=== PATIENT | male | born 1965 | race African-American/Black ===

== ENCOUNTER 2017-01-30 14:47 | Emergency (ER) | payer BC ==
[~2017-01-30] VITALS: Ht 185.4 cm; Wt 116.1 kg
[~2017-01-30 14:47] MED LIST: APRESOLINE 25MG25 MG PO; APRESOLINE50 MG PO; ASPIRIN 81M81 MG/TA2 PO; BACTRIM DS 8001 TAB PO; DOXYCYCLINE 10100 MG PO; FLONASEALLERGY NS; HCTZ 25MG TAB25 MG PO; LEVAQUIN 5500 MG/TA1 PO; MULTIPLE VITAMI1 CAP PO; NORCO 325 MG-51 TAB PO; NORVASC 10MG10 MG PO; PREDNISONE20 MG PO; PRINZIDE 25 MG-1 TAB PO; TRIAMCINOLONE A15 G1 TP; TUSS PO; ZESTRIL40 MG PO
[2017-01-30 14:49] VITALS: BP 127/90; PULSE 65; TEMP 97.4
[2017-01-30] MEDS ORDERED: CEPHALEXIN500 M1 PO (15:20)
== END 2017-01-30 15:32 | disposition home or self-care (01) ==
LOC: COL.ER 14:47
DX: J02.9 Acute pharyngitis, unspecified (principal)

== ENCOUNTER 2017-04-15 14:32 | Day surgery (SDC) | payer BC ==
[~2017-04-15] VITALS: Ht 185.4 cm; Wt 113.9 kg
[~2017-04-15 14:32] MED LIST changes: +CEPHALEXIN500 M1 PO
[2017-04-15 15:18] VITALS: BP 134/89; PULSE 56; TEMP 97.1
[2017-04-15] MEDS ORDERED: FLONASEALLERGY NS (15:27)
[2017-04-15] MEDS ORDERED: SINGULAIR 110 MG/TAB PO (15:27)
[2017-04-15 16:43] VITALS: BP 117/84; PULSE 56; TEMP 97
[2017-04-15 16:58] VITALS: BP 125/86; PULSE 56
[2017-04-15 17:13] VITALS: BP 118/80; PULSE 60
== END 2017-04-15 17:30 | disposition home or self-care (01) ==
LOC: SDCO 14:32
DX: Z12.11 Encounter for screening for malignant neoplasm of colon (principal); K64.8 Other hemorrhoids; I10 Essential (primary) hypertension; Z79.82 Long term (current) use of aspirin; Z79.899 Other long term (current) drug therapy
CPT/HCPCS: OP; J2250; J3010; J7030

== ENCOUNTER 2017-09-02 04:20 | Emergency (ER) | payer BC ==
[~2017-09-02] VITALS: Ht 185.4 cm; Wt 109.1 kg
[~2017-09-02 04:20] MED LIST changes: +SINGULAIR 110 MG/TAB PO
[2017-09-02 04:23] VITALS: BP 133/70; TEMP 99.8
[2017-09-02 05:21] LABS: INFLUENZA B NEGATIVE
[2017-09-02] MEDS ORDERED: VOLTAREN 75 DR75 MG PO (05:28)
[2017-09-02] MEDS ORDERED: BENADRYL25 M2 PO (05:28)
[2017-09-02] MEDS ORDERED: SUDAFED30 MG PO (05:28)
[2017-09-02 05:36] VITALS: PULSE 85
== END 2017-09-02 05:37 | disposition home or self-care (01) ==
LOC: COL.ER 04:20
PROVIDERS: Emergency Medicine
DX: B34.9 Viral infection, unspecified (principal); I10 Essential (primary) hypertension; J45.909 Unspecified asthma, uncomplicated; Z79.82 Long term (current) use of aspirin
CPT/HCPCS: J1885

== ENCOUNTER 2017-10-21 18:24 | Emergency (ER) | payer BC ==
[~2017-10-21] VITALS: Ht 182.9 cm; Wt 110.0 kg
[~2017-10-21 18:24] MED LIST changes: +BENADRYL25 M2 PO; +FLEXERIL 1010 MG/TAB PO; +SUDAFED30 MG PO; +VOLTAREN 75 DR75 MG PO
[2017-10-21 18:26] VITALS: BP 124/75; TEMP 98.2
[2017-10-21] MEDS ORDERED: ZITHROMAX Z PA250 MG PO (19:06)
[2017-10-21] MEDS ORDERED: PROAIR HFA0.09 MG/AC IH (19:06)
[2017-10-21 19:21] VITALS: PULSE 89
== END 2017-10-21 19:22 | disposition home or self-care (01) ==
LOC: COL.ER 18:24
DX: J40 Bronchitis, not specified as acute or chronic (principal); R06.2 Wheezing; I10 Essential (primary) hypertension; Z79.82 Long term (current) use of aspirin

== ENCOUNTER 2018-02-23 05:08 | Emergency (ER) | payer BC ==
[~2018-02-23] VITALS: Ht 185.4 cm; Wt 113.6 kg
[~2018-02-23 05:08] MED LIST changes: +PROAIR HFA0.09 MG/AC IH; +ZITHROMAX Z PA250 MG PO
[2018-02-23 05:11] VITALS: TEMP 98.5
[2018-02-23] MEDS ORDERED: FLONASEALLERGY NS (05:48)
[2018-02-23] MEDS ORDERED: DOXYCYCLINE HY100 MG PO (05:48)
[2018-02-23 06:20] VITALS: BP 125/72; PULSE 75
== END 2018-02-23 06:25 | disposition home or self-care (01) ==
LOC: COL.ER 05:08
DX: J01.90 Acute sinusitis, unspecified (principal); J30.2 Other seasonal allergic rhinitis; K02.9 Dental caries, unspecified; I10 Essential (primary) hypertension; Z98.890 Other specified postprocedural states; Z79.82 Long term (current) use of aspirin

== ENCOUNTER 2018-03-10 06:26 | Emergency (ER) | payer BC ==
[~2018-03-10] VITALS: Ht 185.4 cm; Wt 114.5 kg
[~2018-03-10 06:26] MED LIST changes: +DOXYCYCLINE HY100 MG PO
[2018-03-10 06:35] VITALS: TEMP 97.5
[2018-03-10 06:56] LABS: BASO % 0.3 % (0.0-2.0); EOS # 0.3 (0.0-0.7); GRAN # 2.8 (1.4-6.5); HEMOGLOBIN 12.8 g/dl (13.5-18.0); LYMPH # 2.2 (1.2-3.4); LYMPH % 35.1 % (20.0-51.0); MEAN CELL VOLUME 77 fl (80.0-100.0); MEAN CORPUSCULAR HEMOGLOBIN 27 pg (27.0-31.0); MEAN CORPUSCULAR HGB CONC 36 g/dl (33.0-37.0); MEAN PLATELET VOLUME 9.3 fl (7.4-10.4); MONO # 0.9 (0.1-0.6); MONO % 14.4 % (1.7-9.3); PLATELET COUNT 209 K/mm3 (130-400); RED BLOOD COUNT 4.67 M/mm3 (4.20-5.60); REDCELL DISTRIBUTION WIDTH-CV 15.2 % (11.5-14.5)
[2018-03-10 07:04] LABS: HEMATOCRIT 36.1 % (42.0-52.0)
[2018-03-10 07:07] LABS: ALANINE AMINOTRANSFERASE 42 U/L (21-72); ALBUMIN 3.8 gm/dL (3.5-5.0); ALKALINE PHOSPHATASE 94 U/L (50-136); ANION GAP 11 mmol/L (7-16); AST,SGOT 38 U/L (15-37); BILIRUBIN,TOTAL 0.5 mg/dL (0.0-1.0); BLOOD UREA NITROGEN 19 mg/dL (9-20); CARBON DIOXIDE 26 mmol/L (22-30); CHLORIDE 105 mmol/L (98-107); CREATININE, serum 1.02 mg/dL (0.66-1.25); GLUCOSE 99 mg/dL (74-106); LIPASE 114 U/L (23-300); POTASSIUM 3.3 mmol/L (3.4-5.0); SODIUM 142 mmol/L (137-145); TOTAL PROTEIN 7.8 gm/dL (6.4-8.2)
[2018-03-10 07:17] LABS: ALCOHOL(ethanol),MEDICAL < 10 mg/dL
[2018-03-10 07:19] LABS: TROPONIN-I < 0.012 ng/mL (0.000-0.034)
[2018-03-10] MEDS ORDERED: K-DUR 10 MEQ T10 MEQ PO (10:11)
[2018-03-10 10:36] VITALS: BP 103/64; PULSE 65
== END 2018-03-10 10:41 | disposition home or self-care (01) ==
LOC: COL.ER 06:26
PROVIDERS: Emergency Medicine
DX: R00.2 Palpitations (principal); R07.89 Other chest pain; E87.6 Hypokalemia; I10 Essential (primary) hypertension; Z79.82 Long term (current) use of aspirin
CPT/HCPCS: J7030; Q9967

== ENCOUNTER 2018-08-27 07:56 | Emergency (ER) | payer BC ==
[~2018-08-27] VITALS: Ht 182.9 cm; Wt 109.1 kg
[~2018-08-27 07:56] MED LIST changes: +K-DUR 10 MEQ T10 MEQ PO
[2018-08-27] MEDS ORDERED: MEDROL 4MG DOSPA4 MG PO (08:20)
[2018-08-27 08:36] VITALS: BP 128/76; PULSE 65; TEMP 97.9
== END 2018-08-27 08:36 | disposition home or self-care (01) ==
LOC: COL.ER 07:56
DX: J32.9 Chronic sinusitis, unspecified (principal); I10 Essential (primary) hypertension; Z79.51 Long term (current) use of inhaled steroids; Z88.0 Allergy status to penicillin; Z77.22 Contact with and (suspected) exposure to environmental tobacco smoke (acute) (chronic)

== ENCOUNTER 2018-08-30 00:03 | Emergency (ER) | payer SELFPAY ==
[~2018-08-30] VITALS: Ht 182.9 cm; Wt 110.0 kg
[~2018-08-30 00:03] MED LIST changes: +MEDROL 4MG DOSPA4 MG PO
[2018-08-30 00:08] VITALS: BP 128/74; TEMP 97.8
[2018-08-30 01:40] VITALS: PULSE 53
== END 2018-08-30 01:40 | disposition home or self-care (01) ==
LOC: COL.ER 00:03
DX: L29.9 Pruritus, unspecified (principal); I10 Essential (primary) hypertension; Z88.0 Allergy status to penicillin

== ENCOUNTER 2019-02-24 20:48 | Emergency (ER) | payer SELFPAY ==
[~2019-02-24] VITALS: Ht 182.9 cm; Wt 115.9 kg
[2019-02-24 20:58] VITALS: TEMP 98.1
[2019-02-24] MEDS ORDERED: PREDNISONE10 MG PO (22:42)
[2019-02-24 23:01] VITALS: BP 142/93; PULSE 68
== END 2019-02-24 23:01 | disposition home or self-care (01) ==
LOC: COL.ER 20:48
DX: J06.9 Acute upper respiratory infection, unspecified (principal); Z79.82 Long term (current) use of aspirin
CPT/HCPCS: J7512

== ENCOUNTER → 2019-08-18 | Outpatient (CLI) | payer OTHER ==
[~2019-08-18] MED LIST changes: +PREDNISONE10 MG PO
[2019-08-18 09:51] LABS: BASO % 0.5 % (0.0-2.0); EOS # 0.3 (0.0-0.7); EOS % 5.7 % (0-4.0); GRAN # 2.8 (1.4-6.5); GRAN % 46.8 % (42.2-75.2); HEMOGLOBIN 12.7 g/dl (13.5-18.0); LYMPH # 1.9 (1.2-3.4); LYMPH % 32.1 % (20.0-51.0); MEAN CELL VOLUME 77 fl (80.0-100.0); MEAN CORPUSCULAR HEMOGLOBIN 27 pg (27.0-31.0); MEAN CORPUSCULAR HGB CONC 35 g/dl (33.0-37.0); MEAN PLATELET VOLUME 10.1 fl (7.4-10.4); MONO # 0.9 (0.1-0.6); MONO % 14.4 % (1.7-9.3); PLATELET COUNT 223 K/mm3 (130-400); RED BLOOD COUNT 4.69 M/mm3 (4.20-5.60); REDCELL DISTRIBUTION WIDTH-CV 15.1 % (11.5-14.5)
[2019-08-18 10:02] LABS: ALBUMIN 4.4 gm/dL (3.5-5.0); BILIRUBIN,TOTAL 0.7 mg/dL (0.0-1.0); CALCIUM 9.4 mg/dL (8.4-10.2); CHOLESTEROL RISK RATIO 3.8; CREATININE, serum 0.95 (0.66-1.25); HEMATOCRIT 36.2 % (42.0-52.0); POTASSIUM 3.5 mmol/L (3.4-5.0); TOTAL PROTEIN 8.2 gm/dL (6.4-8.2)
[2019-08-18 10:44] LABS: PSA-TOTAL 0.98 ng/mL (0-4)
== END ==
LOC: COL.LAB 09:08
PROVIDERS: Family Medicine
DX: Z12.5 Encounter for screening for malignant neoplasm of prostate (principal); I10 Essential (primary) hypertension; E03.9 Hypothyroidism, unspecified
CPT/HCPCS: G0103

== ENCOUNTER → 2019-09-06 | Outpatient (CLI) | payer OTHER | LOC: COL.RAD 08:25 | DX: M54.6 Pain in thoracic spine (principal); M54.5 Low back pain; M54.2 Cervicalgia ==

== ENCOUNTER → 2019-12-09 | Outpatient (CLI) | payer OTHER ==
[2019-12-09 09:27] LABS: BASO % 0.4 % (0.0-2.0); EOS # 0.2 (0.0-0.7); EOS % 3.8 % (0-4.0); GRAN # 2.1 (1.4-6.5); GRAN % 40.3 % (42.2-75.2); HEMOGLOBIN 12.8 g/dl (13.5-18.0); LYMPH # 2.1 (1.2-3.4); LYMPH % 40.8 % (20.0-51.0); MEAN CELL VOLUME 77 fl (80.0-100.0); MEAN CORPUSCULAR HEMOGLOBIN 27 pg (27.0-31.0); MEAN CORPUSCULAR HGB CONC 36 g/dl (33.0-37.0); MEAN PLATELET VOLUME 9.8 fl (7.4-10.4); MONO # 0.8 (0.1-0.6); MONO % 14.5 % (1.7-9.3); PLATELET COUNT 210 K/mm3 (130-400); REDCELL DISTRIBUTION WIDTH-CV 15.1 % (11.5-14.5)
[2019-12-09 09:32] LABS: BILIRUBIN UNCONJUGATED 0.6 mg/dL (0.0-1.1); BILIRUBIN,TOTAL 0.5 mg/dL (0.0-1.0); TOTAL PROTEIN 8.2 gm/dL (6.4-8.2)
[2019-12-09 09:45] LABS: IRON,SERUM 62 ug/dL (35-150)
[2019-12-09 09:55] LABS: TOTAL IRON BINDING CAPACITY 306 ug/dL (261-462)
[2019-12-09 10:06] LABS: ALBUMIN 4.2 gm/dL (3.5-5.0)
== END ==
LOC: COL.LAB 09:03
PROVIDERS: Family Medicine
DX: Z13.1 Encounter for screening for diabetes mellitus (principal); D64.9 Anemia, unspecified; R94.5 Abnormal results of liver function studies

== ENCOUNTER 2020-01-10 14:21 | Emergency (ER) | payer OTHER | END 2020-01-10 15:12 | disposition left against medical advice (07) | LOC: COL.ER 14:21 | DX: Z72.9 Problem related to lifestyle, unspecified (principal) ==

== ENCOUNTER 2020-03-06 19:55 | Emergency (ER) | payer OTHER ==
[~2020-03-06] VITALS: Ht 185.4 cm; Wt 120.5 kg
[~2020-03-06 19:55] MED LIST changes: +NATURAL IRON65 MG
[2020-03-06 20:05] VITALS: BP 135/81; TEMP 98.3
[2020-03-06 20:47] LABS: COLLECTION METHOD CLEAN CATCH
[2020-03-06 20:52] LABS: BASO % 0.4 % (0.0-2.0); EOS # 0.1 (0.0-0.7); EOS % 1.2 % (0-4.0); GRAN # 4.6 (1.4-6.5); GRAN % 56.5 % (42.2-75.2); HEMATOCRIT 37.6 % (42.0-52.0); HEMOGLOBIN 13.2 g/dl (13.5-18.0); LYMPH # 2.5 (1.2-3.4); LYMPH % 30.9 % (20.0-51.0); MEAN CELL VOLUME 77 fl (80.0-100.0); MEAN CORPUSCULAR HEMOGLOBIN 27 pg (27.0-31.0); MEAN CORPUSCULAR HGB CONC 35 g/dl (33.0-37.0); MEAN PLATELET VOLUME 9.3 fl (7.4-10.4); MONO # 0.9 (0.1-0.6); MONO % 10.8 % (1.7-9.3); PLATELET COUNT 223 K/mm3 (130-400); RED BLOOD COUNT 4.91 M/mm3 (4.20-5.60); REDCELL DISTRIBUTION WIDTH-CV 14.8 % (11.5-14.5)
[2020-03-06 20:56] LABS: PH 6 (5-8); SQUAMOUS EPITHELIAL None Seen /hpf; URINE APPEARANCE Clear; URINE BACTERIA None Seen /hpf; URINE BILIRUBIN Negative (NEGATIVE); URINE BLOOD 1+ (NEGATIVE); URINE COLOR Straw; URINE GLUCOSE Negative (NEGATIVE); URINE KETONE Negative (NEGATIVE); URINE LEUKOCYTE ESTERASE Negative (NEGATIVE); URINE NITRATE Negative (NEGATIVE); URINE PROTEIN(semi-quant) Negative (NEGATIVE); URINE RBC 0-2 /hpf; URINE UROBILINOGEN Negative (NEGATIVE)
[2020-03-06 21:12] LABS: ALBUMIN 4.6 gm/dL (3.5-5.0); BILIRUBIN,TOTAL 0.5 mg/dL (0.0-1.0); CALCIUM 9.7 mg/dL (8.4-10.2); CREATININE, serum 1.12 (0.66-1.25); POTASSIUM 3.6 mmol/L (3.4-5.0); TOTAL PROTEIN 8.7 gm/dL (6.4-8.2)
[2020-03-06] MEDS ORDERED: BENTYL 20MG20 MG/TAB PO (23:01)
[2020-03-06] MEDS ORDERED: PRILOTC PO (23:01)
[2020-03-06 23:55] VITALS: PULSE 77
[2020-03-08] MEDS ORDERED: PRILOSEC 20MG20 MG PO (22:55)
== END 2020-03-06 23:55 | disposition home or self-care (01) ==
LOC: COL.ER 19:55
PROVIDERS: Emergency Medicine
DX: K43.9 Ventral hernia without obstruction or gangrene (principal); I10 Essential (primary) hypertension; J45.909 Unspecified asthma, uncomplicated; D64.9 Anemia, unspecified; Z79.899 Other long term (current) drug therapy; Z79.82 Long term (current) use of aspirin
CPT/HCPCS: J0500; J1885; J7030; Q9967

== ENCOUNTER 2020-03-15 23:44 | Emergency (ER) | payer OTHER ==
[~2020-03-15] VITALS: Ht 185.4 cm; Wt 120.0 kg
[~2020-03-15 23:44] MED LIST changes: +BENTYL 20MG20 MG/TAB PO; +PRILOSEC 20MG20 MG PO; +PRILOTC PO
[2020-03-15 23:48] VITALS: TEMP 97.9
[2020-03-16 00:31] LABS: BASO % 0.3 % (0.0-2.0); EOS # 0.1 (0.0-0.7); GRAN # 4.2 (1.4-6.5); GRAN % 57.1 % (42.2-75.2); HEMATOCRIT 37.4 % (42.0-52.0); HEMOGLOBIN 13.1 g/dl (13.5-18.0); LYMPH # 2.2 (1.2-3.4); LYMPH % 29.6 % (20.0-51.0); MEAN CELL VOLUME 77 fl (80.0-100.0); MEAN CORPUSCULAR HEMOGLOBIN 27 pg (27.0-31.0); MEAN CORPUSCULAR HGB CONC 35 g/dl (33.0-37.0); MEAN PLATELET VOLUME 9.8 fl (7.4-10.4); MONO # 0.9 (0.1-0.6); MONO % 11.9 % (1.7-9.3); PLATELET COUNT 199 K/mm3 (130-400); RED BLOOD COUNT 4.87 M/mm3 (4.20-5.60); REDCELL DISTRIBUTION WIDTH-CV 14.6 % (11.5-14.5)
[2020-03-16 00:39] LABS: ALANINE AMINOTRANSFERASE 42 U/L (4-49); ALBUMIN 4.4 gm/dL (3.5-5.0); ALKALINE PHOSPHATASE 105 U/L (50-136); AST,SGOT 29 U/L (15-37); BILIRUBIN,TOTAL 0.4 mg/dL (0.0-1.0); BLOOD UREA NITROGEN 17 mg/dL (9-20); CALCIUM 9.7 mg/dL (8.4-10.2); CARBON DIOXIDE 28 mmol/L (22-30); CHLORIDE 101 mmol/L (98-107); CREATININE, serum 1.12 (0.66-1.25); GLUCOSE 124 mg/dL (74-106); LIPASE 145 U/L (23-300); POTASSIUM 3.6 mmol/L (3.4-5.0); TOTAL PROTEIN 8.5 gm/dL (6.4-8.2)
[2020-03-16 00:41] LABS: SODIUM 134 mmol/L (137-145)
[2020-03-16 00:46] LABS: COLLECTION METHOD CLEAN CATCH
[2020-03-16 00:52] LABS: MUCOUS Present /lpf; PH 6 (5-8); SQUAMOUS EPITHELIAL 0-2 /hpf; URINE APPEARANCE Clear; URINE BACTERIA None Seen /hpf; URINE BILIRUBIN Negative (NEGATIVE); URINE BLOOD Negative (NEGATIVE); URINE COLOR Yellow; URINE GLUCOSE Negative (NEGATIVE); URINE KETONE Negative (NEGATIVE); URINE LEUKOCYTE ESTERASE Negative (NEGATIVE); URINE NITRATE Negative (NEGATIVE); URINE PROTEIN(semi-quant) Negative (NEGATIVE); URINE RBC 0-2 /hpf; URINE UROBILINOGEN Negative (NEGATIVE); URINE WBC 0-2 /hpf
[2020-03-16 01:24] LABS: TROPONIN-I < 0.012 ng/mL (0.000-0.035)
[2020-03-16 01:25] LABS: ANION GAP 5 mmol/L (7-16)
[2020-03-16 02:00] VITALS: BP 124/83; PULSE 83
== END 2020-03-16 02:00 | disposition home or self-care (01) ==
LOC: COL.ER 23:44
PROVIDERS: Emergency Medicine
DX: K43.2 Incisional hernia without obstruction or gangrene (principal); I10 Essential (primary) hypertension; J45.909 Unspecified asthma, uncomplicated; D64.9 Anemia, unspecified; Z79.899 Other long term (current) drug therapy; Z79.82 Long term (current) use of aspirin; Z98.890 Other specified postprocedural states
CPT/HCPCS: J1630

== ENCOUNTER 2020-03-31 09:11 | Day surgery (SDC) | payer OTHER ==
[~2020-03-31] VITALS: Ht 185.4 cm; Wt 115.7 kg
[2020-03-31 09:30] VITALS: BP 111/81; PULSE 86; TEMP 98.5
[2020-03-31] MEDS ORDERED: NORCO 325 MG-51 TAB PO (09:37)
[2020-03-31 11:35] VITALS: BP 119/72; PULSE 68; TEMP 97.7
--- NOTE | 2020-03-31 11:35 | NUR ---
Patient back to [facility] at this time. Patient ambulates from cart to chair with stand by assist x2 without any complications. Patient monitor applied, vitals stable. Patient denies nausea or pain. Patient given juice and muffins.
[2020-03-31 11:45] VITALS: BP 110/79; PULSE 72
--- NOTE | 2020-03-31 11:50 | NUR ---
Dr Lim into see patient at this time to go over procedure results.
[2020-03-31 12:00] VITALS: BP 110/73; PULSE 76
--- NOTE | 2020-03-31 12:00 | NUR ---
Patient tolerating juice and muffins well (asked for seconds), vitals stabe, denies pain or nausea.
[2020-03-31 12:15] VITALS: BP 113/67; PULSE 71
--- NOTE | 2020-03-31 12:25 | NUR ---
Dismissal instructions gone over with patient. Patient voices understanding and all questions answered.
--- NOTE | 2020-03-31 12:30 | NUR ---
Patient discharged to private vehicle that his spouse is driving at patient enterance via wheelchair. Dismissal instruction gone over with patient's spouse. She voices understanding. Patient and spouse leave thanking staff for services.
== END 2020-03-31 12:30 | disposition home or self-care (01) ==
LOC: SDCO 09:11
DX: K21.9 Gastro-esophageal reflux disease without esophagitis (principal); K44.9 Diaphragmatic hernia without obstruction or gangrene; K92.1 Melena; D64.9 Anemia, unspecified; Z79.899 Other long term (current) drug therapy; Z88.0 Allergy status to penicillin; Z79.82 Long term (current) use of aspirin
CPT/HCPCS: J2250; J2405; J3010; J7030

== ENCOUNTER 2020-04-14 02:29 | Emergency (ER) | payer OTHER ==
[~2020-04-14] VITALS: Ht 185.4 cm; Wt 115.5 kg
[2020-04-14 02:41] VITALS: TEMP 98
[2020-04-14 03:19] LABS: COLLECTION METHOD CLEAN CATCH
[2020-04-14 03:22] LABS: BASO % 0.3 % (0.0-2.0); EOS # 0.1 (0.0-0.7); EOS % 1.3 % (0-4.0); GRAN # 3.8 (1.4-6.5); HEMOGLOBIN 12.9 g/dl (13.5-18.0); LYMPH # 2.3 (1.2-3.4); LYMPH % 32.2 % (20.0-51.0); MEAN CELL VOLUME 77 fl (80.0-100.0); MEAN CORPUSCULAR HEMOGLOBIN 27 pg (27.0-31.0); MEAN CORPUSCULAR HGB CONC 35 g/dl (33.0-37.0); MEAN PLATELET VOLUME 9.6 fl (7.4-10.4); MONO # 0.9 (0.1-0.6); MONO % 12.9 % (1.7-9.3); PLATELET COUNT 248 K/mm3 (130-400); RED BLOOD COUNT 4.77 M/mm3 (4.20-5.60); REDCELL DISTRIBUTION WIDTH-CV 14.8 % (11.5-14.5)
[2020-04-14 03:26] LABS: PH 5 (5-8); SQUAMOUS EPITHELIAL 0-2 /hpf; URINE APPEARANCE Clear; URINE BACTERIA None Seen /hpf; URINE BILIRUBIN Negative (NEGATIVE); URINE BLOOD Negative (NEGATIVE); URINE COLOR Yellow; URINE GLUCOSE Negative (NEGATIVE); URINE KETONE Negative (NEGATIVE); URINE LEUKOCYTE ESTERASE Negative (NEGATIVE); URINE NITRATE Negative (NEGATIVE); URINE PROTEIN(semi-quant) Negative (NEGATIVE); URINE RBC 0-2 /hpf; URINE UROBILINOGEN Negative (NEGATIVE)
[2020-04-14 03:29] LABS: HEMATOCRIT 36.7 % (42.0-52.0)
[2020-04-14 03:32] LABS: ALBUMIN 4.5 gm/dL (3.5-5.0); BILIRUBIN,TOTAL 0.6 mg/dL (0.0-1.0); CALCIUM 9.6 mg/dL (8.4-10.2); CREATININE, serum 1.07 (0.66-1.25); POTASSIUM 3.4 mmol/L (3.4-5.0); TOTAL PROTEIN 8.4 gm/dL (6.4-8.2)
[2020-04-14] MEDS ORDERED: FLEXERIL 1010 MG/TAB PO (04:22)
[2020-04-14 04:47] VITALS: BP 141/92; PULSE 55
== END 2020-04-14 05:05 | disposition home or self-care (01) ==
LOC: COL.ER 02:29
PROVIDERS: Emergency Medicine
DX: R10.10 Upper abdominal pain, unspecified (principal); I10 Essential (primary) hypertension; J45.909 Unspecified asthma, uncomplicated; Z79.82 Long term (current) use of aspirin
CPT/HCPCS: J1885; J7030

== ENCOUNTER → 2020-04-26 | Outpatient (CLI) | payer OTHER | LOC: COL.RAD 09:14 | DX: K82.8 Other specified diseases of gallbladder (principal); R68.81 Early satiety; K92.1 Melena; R14.2 Eructation | CPT/HCPCS: A9537; J2805 ==

== ENCOUNTER → 2020-05-05 | Outpatient (CLI) | payer OTHER, BC ==
[~2020-05-05] MED LIST changes: +PRIL40 PO; +TYLENOL 325MG325 MG PO
== END ==
LOC: COL.LAB 08:00
DX: Z20.828 Contact with and (suspected) exposure to other viral communicable diseases (principal)

== ENCOUNTER 2020-05-10 08:45 | Day surgery (SDC) | payer OTHER, BC ==
[2020-05-10] VITALS (7 sets, daily range): BP systolic 131–141; BP diastolic 76–81; PULSE 63–74; TEMP 97.7–97.8
[~2020-05-10] VITALS: Ht 185.4 cm; Wt 120.0 kg
[~2020-05-10 08:45] MED LIST changes: -PRIL40 PO; -TYLENOL 325MG325 MG PO
[2020-05-10] MEDS ORDERED: PRIL40 PO (10:21)
[2020-05-10] MEDS ORDERED: TYLENOL 325MG325 MG PO (10:22)
[2020-05-10] MEDS ORDERED: NORCO 325 MG-51 TAB PO (12:15)
--- NOTE | 2020-05-10 12:40 | NUR ---
Patient returns to room 6 per cart from PACU accompanied by Nadine VALDERRAMA and is awake and alert. Temp 97.3 and room air sats 99%. Bandaids x6 on abdomen clean and dry. Patient denies pain or nausea. IV fluids infusing and site is free of redness. Siderails up x2 and call light in reach. Spouse in room. Patient is taking ice chips in place.
--- NOTE | 2020-05-10 12:55 | NUR ---
Room air sats 97%. Resting and denies need for pain medication.
--- NOTE | 2020-05-10 13:10 | NUR ---
Spouse in room. Taking apple juice and eating toast.
--- NOTE | 2020-05-10 13:25 | NUR ---
Tolerated juice and toast. Room air sats 99%.
--- NOTE | 2020-05-10 13:40 | NUR ---
Assisted up to the bathroom and gait is steady. IV to INT. Room air sats 97%. Able to void and returns to room.
--- NOTE | 2020-05-10 13:43 | NUR ---
INT needle discontinued and site is free of redness. Given dismissal instructions and voices understanding of these. Provided script for Redfox. Instructed to take Redfox with food. Spouse assists the patient with dressing.
--- NOTE | 2020-05-10 13:59 | NUR ---
Patient dismissed to home driven by friend and taken to the front door per wheelchair and assisted into car by this RN.
== END 2020-05-10 13:59 | disposition home or self-care (01) ==
LOC: SDCO 08:45
DX: K81.1 Chronic cholecystitis (principal); K66.0 Peritoneal adhesions (postprocedural) (postinfection); K44.9 Diaphragmatic hernia without obstruction or gangrene; K43.2 Incisional hernia without obstruction or gangrene; I10 Essential (primary) hypertension; E66.9 Obesity, unspecified; Z68.34 Body mass index [BMI] 34.0-34.9, adult; Z79.82 Long term (current) use of aspirin; Z79.899 Other long term (current) drug therapy; Z80.9 Family history of malignant neoplasm, unspecified
CPT/HCPCS: J0690; J1100; J1885; J2405; J2704; J7120

== ENCOUNTER 2020-06-07 15:47 | Emergency (ER) | payer OTHER, BC ==
[~2020-06-07] VITALS: Ht 185.4 cm; Wt 118.2 kg
[~2020-06-07 15:47] MED LIST changes: +PRIL40 PO; +TYLENOL 325MG325 MG PO
[2020-06-07 16:02] VITALS: TEMP 97.9
[2020-06-07] MEDS ORDERED: PRINIVIL40 MG PO (16:53)
[2020-06-07 17:12] LABS: COLLECTION METHOD CLEAN CATCH
[2020-06-07 17:23] LABS: BASO % 0.3 % (0.0-2.0); EOS % 0.2 % (0-4.0); GRAN # 7.2 (1.4-6.5); GRAN % 72.4 % (42.2-75.2); HEMOGLOBIN 12.3 g/dl (13.5-18.0); LYMPH # 1.6 (1.2-3.4); LYMPH % 16.5 % (20.0-51.0); MEAN CELL VOLUME 77 fl (80.0-100.0); MEAN CORPUSCULAR HEMOGLOBIN 27 pg (27.0-31.0); MEAN CORPUSCULAR HGB CONC 35 g/dl (33.0-37.0); MEAN PLATELET VOLUME 9.4 fl (7.4-10.4); MONO % 10.1 % (1.7-9.3); PLATELET COUNT 254 K/mm3 (130-400); RED BLOOD COUNT 4.56 M/mm3 (4.20-5.60)
[2020-06-07 17:27] LABS: MUCOUS Present /lpf; PH 6 (5-8); SQUAMOUS EPITHELIAL None Seen /hpf; URINE APPEARANCE Clear; URINE BACTERIA None Seen /hpf; URINE BILIRUBIN Negative (NEGATIVE); URINE BLOOD Negative (NEGATIVE); URINE COLOR Straw; URINE GLUCOSE Negative (NEGATIVE); URINE KETONE Negative (NEGATIVE); URINE LEUKOCYTE ESTERASE Negative (NEGATIVE); URINE NITRATE Negative (NEGATIVE); URINE PROTEIN(semi-quant) Negative (NEGATIVE); URINE RBC 0-2 /hpf; URINE UROBILINOGEN Negative (NEGATIVE)
[2020-06-07 17:29] LABS: HEMATOCRIT 35.2 % (42.0-52.0)
[2020-06-07 17:30] LABS: ALBUMIN 4.1 gm/dL (3.5-5.0); BILIRUBIN,TOTAL 0.5 mg/dL (0.0-1.0); C-REACTIVE PROTEIN 0.8 mg/dL (0.0-0.9); CALCIUM 9.2 mg/dL (8.4-10.2); CREATININE, serum 1.1 (0.66-1.25); POTASSIUM 3.8 mmol/L (3.4-5.0); TOTAL PROTEIN 7.9 gm/dL (6.4-8.2)
[2020-06-07 19:20] VITALS: BP 132/85; PULSE 82
== END 2020-06-07 19:26 | disposition home or self-care (01) ==
LOC: COL.ER 15:47
PROVIDERS: Emergency Medicine
DX: R10.31 Right lower quadrant pain (principal); I10 Essential (primary) hypertension; Z79.899 Other long term (current) drug therapy; R10.11 Right upper quadrant pain; R10.12 Left upper quadrant pain; R10.32 Left lower quadrant pain; Z90.49 Acquired absence of other specified parts of digestive tract
CPT/HCPCS: J2405; J7030; Q9967

== ENCOUNTER 2021-08-26 20:57 | Emergency (ER) | payer SELFPAY ==
[~2021-08-26] VITALS: Ht 185.4 cm; Wt 147.3 kg
[~2021-08-26 20:57] MED LIST changes: +PRINIVIL40 MG PO
[2021-08-26 21:15] VITALS: TEMP 97.4
[2021-08-26 22:03] LABS: BASO % 0.3 % (0.0-2.0); EOS # 0.3 (0.0-0.7); EOS % 3.1 % (0-4.0); GRAN # 5.3 (1.4-6.5); GRAN % 60.6 % (42.2-75.2); HEMOGLOBIN 11.6 g/dl (13.5-18.0); LYMPH # 2.3 (1.2-3.4); LYMPH % 26.6 % (20.0-51.0); MEAN CELL VOLUME 73 fl (80.0-100.0); MEAN CORPUSCULAR HEMOGLOBIN 26 pg (27.0-31.0); MEAN CORPUSCULAR HGB CONC 35 g/dl (33.0-37.0); MEAN PLATELET VOLUME 9.7 fl (7.4-10.4); MONO # 0.8 (0.1-0.6); MONO % 9.2 % (1.7-9.3); PLATELET COUNT 263 K/mm3 (130-400); RED BLOOD COUNT 4.53 M/mm3 (4.20-5.60); REDCELL DISTRIBUTION WIDTH-CV 16.4 % (11.5-14.5)
[2021-08-26 22:05] LABS: HEMATOCRIT 32.9 % (42.0-52.0)
[2021-08-26 22:19] LABS: ALBUMIN 3.6 gm/dL (3.5-5.0); BILIRUBIN,TOTAL 0.3 mg/dL (0.2-1.2); C-REACTIVE PROTEIN 3.5 mg/dL (0.00-0.50); CALCIUM 9.7 mg/dL (8.4-10.2); CREATININE, serum 1.12 mg/dL (0.72-1.25); POTASSIUM 3.6 mmol/L (3.5-4.5); TOTAL PROTEIN 8.1 gm/dL (6.2-8.1)
[2021-08-26 22:24] LABS: TROPONIN-I 0.012 ng/mL (0.00-0.033)
[2021-08-26 22:36] LABS: ERYTHROCYTE SEDIMENTATION RATE 22 mm/hr (0-30)
[2021-08-26] MEDS ORDERED: LEVAQUIN 750MG750 M1 PO (22:59)
[2021-08-26 23:23] VITALS: BP 130/92; PULSE 84
== END 2021-08-26 23:30 | disposition home or self-care (01) ==
LOC: COL.ER 20:57
PROVIDERS: Emergency Medicine
DX: J18.9 Pneumonia, unspecified organism (principal); J06.9 Acute upper respiratory infection, unspecified; I10 Essential (primary) hypertension; Z79.899 Other long term (current) drug therapy; Z20.822 Contact with and (suspected) exposure to COVID-19
CPT/HCPCS: J1100; J7030

== ENCOUNTER 2021-10-14 16:54 | Emergency (ER) | payer SELFPAY ==
[~2021-10-14] VITALS: Ht 185.4 cm; Wt 145.5 kg
[~2021-10-14 16:54] MED LIST changes: +LEVAQUIN 750MG750 M1 PO
[2021-10-14 17:47] LABS: BASO % 0.4 % (0.0-2.0); EOS # 0.2 K/mm3 (0.0-0.7); EOS % 3.1 % (0-4.0); GRAN # 5.1 K/mm3 (1.4-6.5); GRAN % 65.9 % (42.2-75.2); HEMATOCRIT 34.8 % (42.0-52.0); HEMOGLOBIN 12.2 g/dl (13.5-18.0); LYMPH # 1.5 K/mm3 (1.2-3.4); LYMPH % 19.2 % (20.0-51.0); MEAN CELL VOLUME 72 fl (80.0-100.0); MEAN CORPUSCULAR HEMOGLOBIN 25 pg (27.0-31.0); MEAN CORPUSCULAR HGB CONC 35 g/dl (33.0-37.0); MEAN PLATELET VOLUME 9.4 fl (7.4-10.4); MONO # 0.8 K/mm3 (0.1-0.6); PLATELET COUNT 249 K/mm3 (130-400); RED BLOOD COUNT 4.82 M/mm3 (4.20-5.60); REDCELL DISTRIBUTION WIDTH-CV 15.9 % (11.5-14.5)
[2021-10-14 18:13] LABS: ALANINE AMINOTRANSFERASE 43 U/L (0-55); ALBUMIN 3.7 gm/dL (3.5-5.0); ALKALINE PHOSPHATASE 98 U/L (40-150); ANION GAP 10 mmol/L (7-16); AST,SGOT 32 U/L (5-34); BILIRUBIN,TOTAL 0.3 mg/dL (0.2-1.2); BLOOD UREA NITROGEN 13 mg/dL (8-26); CALCIUM 9.3 mg/dL (8.4-10.2); CARBON DIOXIDE 22 mmol/L (22-29); CHLORIDE 103 mmol/L (98-107); CREATININE, serum 1.14 mg/dL (0.72-1.25); GLUCOSE 153 mg/dL (70-99); POTASSIUM 3.7 mmol/L (3.5-4.5); SODIUM 135 mmol/L (136-145)
[2021-10-14 18:19] LABS: TROPONIN-I < 0.010 ng/mL (0.00-0.033)
[2021-10-15 02:10] VITALS: BP 101/72; PULSE 109; TEMP 98.7
== END 2021-10-14 20:49 | disposition home or self-care (01) ==
LOC: COL.ER 16:54
PROVIDERS: Physician Assistant
DX: R07.9 Chest pain, unspecified (principal); R06.02 Shortness of breath; T50.B95A Adverse effect of other viral vaccines, initial encounter; I10 Essential (primary) hypertension; Z20.822 Contact with and (suspected) exposure to COVID-19; Z79.899 Other long term (current) drug therapy
CPT/HCPCS: J7030; Q9967

== ENCOUNTER 2022-03-09 07:10 | Emergency (ER) | payer SELFPAY ==
[~2022-03-09] VITALS: Ht 185.4 cm; Wt 143.2 kg
[2022-03-09 07:22] VITALS: BP 142/85; PULSE 69; TEMP 97.8
[2022-03-09] MEDS ORDERED: MOTRIN 800800 MG/TAB PO (07:54)
== END 2022-03-09 08:09 | disposition home or self-care (01) ==
LOC: COL.ER 07:10
DX: S63.501A Unspecified sprain of right wrist, initial encounter (principal); W01.0XXA Fall on same level from slipping, tripping and stumbling without subsequent striking against object, initial encounter

== ENCOUNTER → 2022-04-04 | Outpatient (CLI) | payer OTHER ==
[~2022-04-04] MED LIST changes: +MOTRIN 800800 MG/TAB PO
== END ==
LOC: COL.RAD 08:33
DX: Z02.71 Encounter for disability determination (principal); M17.11 Unilateral primary osteoarthritis, right knee

== ENCOUNTER 2022-06-28 13:00 | Outpatient (RCR) | payer MEDICAID ==
[2022-06-20 15:59] VITALS: BP 112/73; PULSE 77; TEMP 98.6
[2022-06-24 15:17] VITALS: BP 121/77; PULSE 74; TEMP 97.7
[2022-06-26 11:00] VITALS: BP 110/73; PULSE 81; TEMP 97.7
[~2022-06-28] VITALS: Ht 185.4 cm; Wt 143.0 kg
[~2022-06-28 13:00] MED LIST changes: +CYMBALTA 20MG20 MG PO; +FERROUSAL325 MG PO; +PRINZIDE 12.5 M1 TA1 PO; +ULTRAM 50MG TAB50 MG PO
[2022-06-28 13:17] VITALS: BP 139/83; PULSE 71; TEMP 98.7
--- NOTE | 2022-06-28 15:05 | NUR ---
Per Marcell Clarification call to Physician made by Marcell,Pharmacist to have today as last dose.
== END 2022-06-28 15:06 ==
LOC: EUO 13:00
DX: M54.41 Lumbago with sciatica, right side (principal); M54.42 Lumbago with sciatica, left side; I10 Essential (primary) hypertension; E66.01 Morbid (severe) obesity due to excess calories; Z68.41 Body mass index [BMI] 40.0-44.9, adult
CPT/HCPCS: J1756; J7050

== ENCOUNTER → 2022-07-12 | Outpatient (CLI) | payer MEDICAID | LOC: COL.RAD 13:26 | DX: K57.90 Diverticulosis of intestine, part unspecified, without perforation or abscess without bleeding (principal); D50.9 Iron deficiency anemia, unspecified ==

== ENCOUNTER → 2023-08-14 | Outpatient (CLI) | payer MEDICAID | LOC: COL.RAD 07:30 | DX: R29.2 Abnormal reflex (principal) | CPT/HCPCS: A9575 ==

== ENCOUNTER → 2024-02-16 | Outpatient (CLI) | payer MEDICARE, MEDICAID | LOC: MHCPAIN 10:17 | DX: M53.3 Sacrococcygeal disorders, not elsewhere classified (principal); M62.81 Muscle weakness (generalized); M54.50 Low back pain, unspecified | CPT/HCPCS: G0463 ==

== ENCOUNTER → 2024-03-15 | Outpatient (CLI) | payer MEDICARE, MEDICAID ==
[~2024-03-15] MED LIST changes: +Iohexol 300 - 10 ML VIAL ONE; +Lidocaine PF 1% (10 MG/ML) 5 ML VIAL ONE; +Triamcinolone 40 MG/ML 1 ML VIAL ONE
== END ==
LOC: MHCPAIN 09:49
DX: M53.3 Sacrococcygeal disorders, not elsewhere classified (principal); R00.0 Tachycardia, unspecified
CPT/HCPCS: G0463; J3301; Q9967

== ENCOUNTER → 2024-05-17 | Outpatient (CLI) | payer MEDICARE, MEDICAID ==
[~2024-05-17] MED LIST changes: -Iohexol 300 - 10 ML VIAL ONE; -Lidocaine PF 1% (10 MG/ML) 5 ML VIAL ONE; -Triamcinolone 40 MG/ML 1 ML VIAL ONE
== END ==
LOC: MHCPAIN 10:22
DX: M53.3 Sacrococcygeal disorders, not elsewhere classified (principal); M54.50 Low back pain, unspecified; M62.81 Muscle weakness (generalized); M79.18 Myalgia, other site
CPT/HCPCS: G0463